=== PATIENT | male | born 1960 | race Caucasian/White ===

== ENCOUNTER 2018-12-24 16:50 | Emergency (ER) | payer BC ==
[~2018-12-24] VITALS: Ht 170.2 cm; Wt 68.9 kg
[2018-12-24] MEDS ORDERED: ALPRAZOLAM0.25 MG (17:01)
[2018-12-24] MEDS ORDERED: BACLOFEN20 MG (17:01)
[2018-12-24] MEDS ORDERED: MEGESTROL ACETA20 MG (17:01)
[2018-12-24] MEDS ORDERED: ONDANSETRON ODT8 MG (17:01)
[2018-12-24] MEDS ORDERED: PROCHLORPERAZIN10 MG (17:02)
== END 2018-12-24 18:15 | disposition left against medical advice (07) ==
LOC: EDSEX 16:50 → ER 16:50
DX: G89.3 Neoplasm related pain (acute) (chronic) (principal); C15.9 Malignant neoplasm of esophagus, unspecified; M79.604 Pain in right leg; M79.651 Pain in right thigh; Z92.21 Personal history of antineoplastic chemotherapy